=== PATIENT | male | born 1980 | race Caucasian/White ===

== ENCOUNTER → 2017-01-04 | Outpatient (REF) | payer MEDICARE, MEDICAID ==
[~2017-01-04] MED LIST: /ESCI10TA; /WARF3TA; /WARF4TA; AMLO10TA; CLON0.5T; CLON1TAB; CLONAZEPAN; CLONPOW23; KEPPRA; KLON1TAB; LISI10TA4; TOPR25TA
[2017-01-04 13:22] LABS: ANION GAP 10 MEQ/L (8-16); BLOOD UREA NITROGEN 12 MG/DL (7-18); CALCIUM LEVEL 8.7 MG/DL (8.5-10.1); CARBON DIOXIDE LEVEL 28 MEQ/L (21-32); CHLORIDE LEVEL 103 MEQ/L (98-107); CREATININE FOR GFR 1.34 MG/DL (0.70-1.30); GLOMERULAR FILTRATION RATE > 60.0 (>60); GLUCOSE, FASTING 88 MG/DL (70-105); POTASSIUM SERUM 4.8 MEQ/L (3.5-5.1); SODIUM LEVEL 141 MEQ/L (136-145)
== END ==
LOC: M LABDRWAD 12:32
PROVIDERS: ATTEND Urology
DX: Z85.528 Personal history of other malignant neoplasm of kidney (principal)

== ENCOUNTER 2017-07-11 11:00 | Emergency (ER) | payer MEDICARE, MEDICAID ==
[~2017-07-11] VITALS: Ht 180.3 cm; Wt 84.9 kg
[2017-07-11] MEDS ORDERED: MULT1TAB18 PO (11:13)
[2017-07-11] MEDS ORDERED: COUM2.5T17 PO (11:13)
[2017-07-11] MEDS ORDERED: COUM1TAB17 PO (11:13)
[2017-07-11] MEDS ORDERED: KEPP10002 PO (11:13)
[2017-07-11] MEDS ORDERED: LISI10TA4 PO (11:13)
[2017-07-11] MEDS ORDERED: vitamin d3 (11:13)
[2017-07-11] MEDS ORDERED: NS 1,000 ML IV ONE (12:45)
[2017-07-11 13:26] LABS: BASO % 0.2 % (0.0-1.0); EOS # 0.2 K/mm3 (0.0-0.50); EOS % 1.8 % (0.0-3.0); LARGE UNSTAINED CELL # 0.1 K/mm3 (0.0-0.4); LYMPH % 11.6 % (24.0-44.0); MEAN CORPUSCULAR HEMOGLOBIN 33.2 pg (27.0-33.0); MEAN CORPUSCULAR HGB CONC 36.1 g/dl (32.0-36.5); MEAN CORPUSCULAR VOLUME 91.9 fl (80.0-96.0); MONO # 0.4 K/mm3 (0.0-0.8); MONO % 4.6 % (0.0-5.0); NEUTROPHILS # 7.2 K/mm3 (1.8-7.7); NEUTROPHILS % 80.8 % (36.0-66.0); PLATELET COUNT, AUTOMATED 187 k/mm3 (150-450); RED CELL DISTRIBUTION WIDTH 13.1 % (11.5-14.5); WHITE BLOOD COUNT 8.9 K/mm3 (4.0-10.0)
[2017-07-11 13:39] LABS: ALT/SGPT 28 U/L (12-78); ANION GAP 5 MEQ/L (8-16); AST/SGOT 22 U/L (15-37); BLOOD UREA NITROGEN 10 MG/DL (7-18); CALCIUM LEVEL 9.7 MG/DL (8.5-10.1); CARBON DIOXIDE LEVEL 31 MEQ/L (21-32); CHLORIDE LEVEL 101 MEQ/L (98-107); CREATININE FOR GFR 1.12 MG/DL (0.70-1.30); GLOMERULAR FILTRATION RATE > 60.0 (>60); GLUCOSE, FASTING 95 MG/DL (70-105); POTASSIUM SERUM 4.2 MEQ/L (3.5-5.1); SODIUM LEVEL 137 MEQ/L (136-145)
[2017-07-11 13:40] LABS: ALBUMIN 4.4 GM/DL (3.2-5.2); ALBUMIN/GLOBULIN RATIO 1.05 (1.00-1.93); ALKALINE PHOSPHATASE 65 U/L (45-117); BILIRUBIN,DIRECT 0.2 MG/DL (0.0-0.2); BILIRUBIN,TOTAL 0.9 MG/DL (0.2-1.0); TOTAL PROTEIN 8.6 GM/DL (6.4-8.2)
[2017-07-11 14:01] LABS: INR 1.86
--- NOTE | 2017-07-11 14:08 | REP ---
ULTRASOUND OF THE ABDOMINAL AORTA: Real-time sonographic evaluation of the abdominal aorta performed. There is no abdominal aortic aneurysm identified. Maximum AP diameter of the abdominal aorta at the level of the diaphragms proximally is 2.3 cm, at the level of the renal artery is 2.2 cm, mid aspect 1.9 cm and distally 1.5 cm. Common iliac arteries are normal in caliber. There is no dissection. IMPRESSION: No evidence of abdominal aortic aneurysm or dissection. Signed by Milo Barnhart MD 07/12/2017 05:32 P
[2017-07-11] MEDS ORDERED: ISOVUE-370 76% 100ML VIAL (Q9967) As Ordered ONE (14:10)
--- NOTE | 2017-07-11 15:15 | REP ---
CT ABDOMEN AND PELVIS WITH IV CONTRAST: TECHNIQUE: Axial contrast enhanced images from the lung bases to the pubic symphysis using 100 mL Isovue 370 intravenous contrast material with multiplanar reformations. Visualized lung bases are clear. The liver is unremarkable. Gallbladder demonstrates two large gallstones measuring 2.4 cm and 2.0 cm in diameter. There is no definite gallbladder wall edema. Spleen and adrenals are unremarkable. Pancreas demonstrates an ill-defined streaky density in the region of the pancreatic head compatible with pancreatitis. The patient has had a left nephrectomy with metallic clips in the left renal fossa. The right kidney demonstrates a cyst in the upper pole 1.1 cm in diameter. There is no abdominal aortic aneurysm. There is no adenopathy, free air or free fluid. There is no bowel wall thickening. The appendix is normal. There is no pelvic mass. The urinary bladder is not well distended and is grossly unremarkable. IMPRESSION: Findings compatible with pancreatitis involving the pancreatic head. No free air or free fluid. Two large gallstones in the gallbladder. Signed by Milo Barnhart MD 07/12/2017 05:33 P
[2017-07-11 16:05] VITALS: BP 142/90
== END 2017-07-11 16:10 | disposition left against medical advice (07) ==
LOC: M ED 11:00
DX: K85.10 Biliary acute pancreatitis without necrosis or infection (principal); Z86.73 Personal history of transient ischemic attack (TIA), and cerebral infarction without residual deficits
CPT/HCPCS: 36415; 74177; 76775; 80048; 80076; 83690; 85025; 85610; 85730; 99283; Q9967

== ENCOUNTER 2018-05-06 10:35 | Emergency (ER) | payer MEDICARE, MEDICAID ==
[2018-05-06 11:28] LABS: EOS # 0.2 10^3/uL (0.0-0.50); EOS % 4.6 % (0.0-3.0); HEMATOCRIT 39.9 % (42.0-52.0); HEMOGLOBIN 13.7 g/dl (13.5-17.5); IMMATURE GRANULOCYTE % 0.2 % (0-3.0); LYMPH # 0.8 10^3/uL (1.5-4.5); LYMPH % 19.8 % (24.0-44.0); MEAN CORPUSCULAR HGB CONC 34.3 g/dl (32.0-36.5); MEAN CORPUSCULAR VOLUME 93.2 fl (80.0-96.0); MONO # 0.3 10^3/uL (0.0-0.8); MONO % 7.5 % (0.0-5.0); NEUTROPHILS # 2.8 10^3/uL (1.8-7.7); NEUTROPHILS % 66.9 % (36.0-66.0); PLATELET COUNT, AUTOMATED 150 10^3/uL (150-450); RED BLOOD COUNT 4.28 10^6/uL (4.30-6.10); RED CELL DISTRIBUTION WIDTH 13.1 % (11.5-14.5); WHITE BLOOD COUNT 4.2 10^3/uL (4.0-10.0)
[2018-05-06 11:42] LABS: INR 3.26; PROTHROMBIN TIME 33.9 SECONDS (12.1-14.4)
[2018-05-06 11:43] LABS: PARTIAL THROMBOPLASTIN TIME 57.3 SECONDS (25.4-37.6)
[2018-05-06 12:03] LABS: ANION GAP 7 MEQ/L (8-16); BLOOD UREA NITROGEN 11 MG/DL (7-18); CALCIUM LEVEL 8.5 MG/DL (8.5-10.1); CARBON DIOXIDE LEVEL 29 MEQ/L (21-32); CHLORIDE LEVEL 103 MEQ/L (98-107); CK-MB VALUE MASS < 1.0 NG/ML (<3.6); CPK CREATINE PHOSPHOKINASE 103 U/L (39-308); CREATININE FOR GFR 1.15 MG/DL (0.70-1.30); GLOMERULAR FILTRATION RATE > 60.0 (>60); GLUCOSE, FASTING 90 MG/DL (70-100); MB/CK RELATIVE INDEX 0.97 (< OR =4); POTASSIUM SERUM 4.3 MEQ/L (3.5-5.1); SODIUM LEVEL 139 MEQ/L (136-145); TROPONIN I < 0.02 NG/ML (< 0.10)
[2018-05-06] MEDS ORDERED: ISOVUE-370 76% 100ML VIAL (Q9967) As Ordered (14:02)
[2018-05-06] MEDS: NS 1,000 ML IV (14:24)
[2018-05-06] MEDS: NORCO, ANEXSIA 5/325MG TABLET (HYDROcodone/ACETAMINOPHEN) PO (15:24)
== END 2018-05-06 16:02 | disposition home or self-care (01) ==
LOC: M ED 10:35
DX: M25.511 Pain in right shoulder (principal); Z86.73 Personal history of transient ischemic attack (TIA), and cerebral infarction without residual deficits; Z79.899 Other long term (current) drug therapy; Z79.01 Long term (current) use of anticoagulants
CPT/HCPCS: Q9967

== ENCOUNTER 2018-05-13 11:52 | Outpatient (RCR) | payer MEDICARE, MEDICAID | END 2018-05-21 | LOC: M PT 11:52 | DX: Z51.89 Encounter for other specified aftercare (principal); M54.2 Cervicalgia | CPT/HCPCS: 97110 ==

== ENCOUNTER 2018-05-22 12:51 | Outpatient (RCR) | payer MEDICARE, MEDICAID | END 2018-06-21 | LOC: M PT 05-27 12:13 | DX: Z51.89 Encounter for other specified aftercare (principal); M54.2 Cervicalgia | CPT/HCPCS: 97110 ==

== ENCOUNTER 2018-08-22 15:20 | Emergency (ER) | payer MEDICARE, MEDICAID ==
[2018-08-22] MEDS: diazePAM 5 MG TAB PO (18:27)
[2018-08-22] MEDS: NORCO, ANEXSIA 5/325MG TABLET (HYDROcodone/ACETAMINOPHEN) PO ×2 (18:27→20:55)
[2018-08-22 18:45] LABS: BASO % 0.7 % (0.0-1.0); EOS # 0.1 10^3/uL (0.0-0.50); EOS % 1.4 % (0.0-3.0); HEMOGLOBIN 14.3 g/dl (13.5-17.5); IMMATURE GRANULOCYTE % 0.2 % (0-3.0); LYMPH # 0.8 10^3/uL (1.5-4.5); LYMPH % 13.4 % (24.0-44.0); MEAN CORPUSCULAR HEMOGLOBIN 31.5 pg (27.0-33.0); MEAN CORPUSCULAR VOLUME 92.5 fl (80.0-96.0); MONO # 0.3 10^3/uL (0.0-0.8); MONO % 5.5 % (0.0-5.0); NEUTROPHILS # 4.6 10^3/uL (1.8-7.7); NEUTROPHILS % 78.8 % (36.0-66.0); PLATELET COUNT, AUTOMATED 189 10^3/uL (150-450); RED BLOOD COUNT 4.54 10^6/uL (4.30-6.10); WHITE BLOOD COUNT 5.8 10^3/uL (4.0-10.0)
[2018-08-22 19:25] LABS: ANION GAP 6 MEQ/L (8-16); BLOOD UREA NITROGEN 18 MG/DL (7-18); CALCIUM LEVEL 8.8 MG/DL (8.5-10.1); CARBON DIOXIDE LEVEL 29 MEQ/L (21-32); CHLORIDE LEVEL 103 MEQ/L (98-107); CREATININE FOR GFR 1.16 MG/DL (0.70-1.30); GLOMERULAR FILTRATION RATE > 60.0 (>60); GLUCOSE, FASTING 102 MG/DL (70-100); POTASSIUM SERUM 4.5 MEQ/L (3.5-5.1); SODIUM LEVEL 138 MEQ/L (136-145)
[2018-08-22] MEDS ORDERED: ISOVUE-370 76% 100ML VIAL (Q9967) As Ordered ×2 (19:49→20:08)
[2018-08-22] MEDS: NS 1,000 ML IV (20:22)
[2018-08-22] MEDS: METHOCARBAMOL 1,000 MG/10 ML VIAL (J2800) IV (20:54)
[2018-08-22] MEDS ORDERED: diazePAM 5 MG TAB PO (21:45)
== END 2018-08-22 21:53 | disposition home or self-care (01) ==
LOC: M ED 15:20
DX: M54.5 Low back pain (principal); I11.0 Hypertensive heart disease with heart failure; I50.9 Heart failure, unspecified; Z86.73 Personal history of transient ischemic attack (TIA), and cerebral infarction without residual deficits
CPT/HCPCS: Q9967

== ENCOUNTER 2018-11-18 19:46 | Observation (INO) | payer MEDICARE, MEDICAID ==
[~2018-11-18] VITALS: Ht 180.3 cm; Wt 81.8 kg
[~2018-11-18 19:46] MED LIST changes: +COUM1TAB17 PO; +COUM2.5T17 PO; +KEPP10002 PO; +LISI10TA4 PO; +MULT1TAB18 PO; +NORC1TAB4 PO; +VALI5TAB PO; +vitamin d3
[2018-11-18 20:15] LABS: BASO % 0.1 % (0.0-1.0); EOS # 0.1 10^3/uL (0.0-0.50); EOS % 0.3 % (0.0-3.0); HEMATOCRIT 41.1 % (42.0-52.0); HEMOGLOBIN 14.4 g/dl (13.5-17.5); LYMPH # 0.4 10^3/uL (1.5-4.5); MEAN CORPUSCULAR HEMOGLOBIN 31.6 pg (27.0-33.0); MEAN CORPUSCULAR VOLUME 90.1 fl (80.0-96.0); MONO # 0.8 10^3/uL (0.0-0.8); MONO % 4.8 % (0.0-5.0); NEUTROPHILS % 92.3 % (36.0-66.0); PLATELET COUNT, AUTOMATED 151 10^3/uL (150-450); RED BLOOD COUNT 4.56 10^6/uL (4.30-6.10); WHITE BLOOD COUNT 17.4 10^3/uL (4.0-10.0)
[2018-11-18 20:59] LABS: ALBUMIN 4.4 GM/DL (3.2-5.2); ALT/SGPT 29 U/L (12-78); BILIRUBIN,DIRECT 0.2 MG/DL (0.0-0.2); BILIRUBIN,TOTAL 1.4 MG/DL (0.2-1.0); BLOOD UREA NITROGEN 13 MG/DL (7-18); CARBON DIOXIDE LEVEL 25 MEQ/L (21-32); CHLORIDE LEVEL 100 MEQ/L (98-107); CREATININE FOR GFR 1.22 MG/DL (0.70-1.30); GLOMERULAR FILTRATION RATE > 60.0 (>60); GLUCOSE, FASTING 121 MG/DL (70-100); LIPASE 178 U/L (73-393); POTASSIUM SERUM 4.4 MEQ/L (3.5-5.1); SODIUM LEVEL 136 MEQ/L (136-145); TOTAL PROTEIN 7.5 GM/DL (6.4-8.2)
[2018-11-18] MEDS ORDERED: ONDANSETRON 4MG/2ML VIAL (J2405) IV ONE (21:15)
[2018-11-18] MEDS ORDERED: NS 1,000 ML IV ONE (21:15)
[2018-11-18] MEDS ORDERED: PANTOPRAZOLE 40MG INJ (PROTONIX) (C9113) IV ONE (21:15)
[2018-11-18 21:36] LABS: INR 2.28; PROTHROMBIN TIME 25.6 SECONDS (12.1-14.4)
[2018-11-18] MEDS ORDERED: MORPHINE 4 MG/ML 1ML VIAL/SYRINGE (J2270) IV ONE (22:15)
--- NOTE | 2018-11-18 22:31 | REPVR ---
EXAM: CT Abdomen and Pelvis Without Contrast EXAM DATE/TIME: 11/18/2018 9:49 PM CLINICAL HISTORY: 38 years old, male; Pain; Abdominal pain; Generalized; Prior surgery; Additional info: Abd pain 1 kidney TECHNIQUE: Axial computed tomography images of the abdomen and pelvis without contrast. All CT scans at this facility use at least one of these dose optimization techniques: automated exposure control; mA and/or kV adjustment per patient size (includes targeted exams where dose is matched to clinical indication); or iterative reconstruction. Coronal and sagittal reformatted images were created and reviewed. COMPARISON: CT ABD PELVIS WITH CONTRAST 08/22/2018 7:43 PM FINDINGS: Lower thorax: Lung base as. The heart is normal in size. ABDOMEN: Liver: Normal liver. Gallbladder and bile ducts: Surgical clips at the gallbladder fossa and the patient is status post total cystectomy. Normal common bile duct. Pancreas: Normal pancreas. Spleen: Normal spleen. Adrenals: Normal adrenal glands. Kidneys and ureters: Tiny cyst in the upper pole right kidney. There is no evidence of obstruction of the right ureter. Surgical clips are noted at the left renal fossa patient is post left nephrectomy. Stomach and bowel: There are moderately dilated loops of small bowel in left abdomen with secretions and air-fluid levels which may be the result of ileus or early enteritis. Appendix: The appendix measures 1.3 CM at the distal portion. There is a 1 cm round calcified appendicolith at the junction of the appendix with the cecum. The distal end of the appendix is filled with secretions and there is mild thickening and hazy margins. The findings are suspicious for changes of appendicitis. The size of the he appendix has markedly increased since 09/11/2018. PELVIS: Bladder: Normal urinary bladder. Reproductive: Unremarkable as visualized. ABDOMEN and PELVIS: Intraperitoneal space: There is no evidence of pneumoperitoneum. There is no evidence of free fluid in the abdomen or the pelvis. Bones/joints: There is no evidence of bony abnormality. Soft tissues: Unremarkable. Vasculature: The aorta is normal in size. Lymph nodes: Normal. No enlarged lymph nodes. IMPRESSION: Since the previous examination of August there has been dilatation of the appendix measuring 1.3 CM. There is a slight hazy appearance to the margins of the appendix at the right pelvis. There is a 1 cm calcified appendicolith at the junction of the appendix and cecum. There is fluid filling the mid and distal appendix. This is all very suspicious for changes of acute appendicitis. Findings were discussed with SPENCER KOROMA at 11/18/2018 10:27 PM EST. Electronically signed by: Supa Miranda On 11/18/2018 22:30:47 PM
[2018-11-18] MEDS ORDERED: PROPOFOL 200 MG/20 ML VIAL As Ordered ONE (23:39)
[2018-11-18] MEDS ORDERED: LIDOCAINE 2% INJ 100 MG/5 ML SDV (FOR ANES.) As Ordered ONE (23:39)
[2018-11-18] MEDS ORDERED: fentaNYL 250 MCG/5 ML INJECTION (J3010) As Ordered ONE (23:39)
[2018-11-18] MEDS ORDERED: MIDAZOLAM INJ 2 MG/2 ML VIAL (J2250) As Ordered ONE (23:39)
[2018-11-18] MEDS ORDERED: ROCURONIUM BROMIDE 50 MG/5 ML VIAL As Ordered ONE (23:39)
[2018-11-18] MEDS ORDERED: TYLE500T78 PO (23:41)
[2018-11-18] MEDS ORDERED: VITMTA PO (23:41)
[2018-11-18] MEDS ORDERED: LISI-538 PO (23:41)
[2018-11-18] MEDS ORDERED: VITA100066 PO (23:41)
[2018-11-18] MEDS ORDERED: PIPERACILLIN/TAZOBACTAM SOD 3.375 GM in D5W MINI-BAG PLUS 50 ML IV ONE (23:45)
[2018-11-19] VITALS (10 sets, daily range): BP systolic 103–134; BP diastolic 70–91
[2018-11-19] MEDS ORDERED: BUPIVACAINE/EPIN 0.25% 30 ML VIAL As Ordered ONE (00:23)
[2018-11-19] MEDS ORDERED: MORPHINE 4 MG/ML 1ML VIAL/SYRINGE (J2270) IV PRN (02:00)
[2018-11-19] MEDS ORDERED: ONDANSETRON 4MG/2ML VIAL (J2405) IV PRN ×2 (02:00→03:00)
[2018-11-19] MEDS ORDERED: ACETAMINOPHEN TAB 650MG DOSE (2X325MG) PO PRN (02:00)
[2018-11-19] MEDS ORDERED: dexameTHASONE 4 MG/ML 1ML VIAL (J1100) As Ordered ONE (02:09)
[2018-11-19] MEDS ORDERED: ONDANSETRON 4MG/2ML VIAL (J2405) As Ordered ONE (02:09)
[2018-11-19] MEDS ORDERED: DESFLURANE 240 ML INHALANT As Ordered ONE (02:12)
[2018-11-19] MEDS ORDERED: SUGAMMADEX SODIUM 500 MG/5 ML VIAL (BRIDION) As Ordered ONE (02:22)
[2018-11-19] MEDS ORDERED: ESMOLOL INJ 100MG/10ML VIAL As Ordered ONE (02:34)
[2018-11-19] MEDS ORDERED: fentaNYL 100 MCG/2 ML INJECTION (J3010) As Ordered ONE (02:45)
[2018-11-19] MEDS ORDERED: METOCLOPRAMIDE INJ 10MG/2ML VIAL (J2765) IV PRN (03:00)
[2018-11-19] MEDS ORDERED: PERCOCET 5MG/325MG TAB PO PRN (03:00)
[2018-11-19] MEDS ORDERED: fentaNYL 100 MCG/2 ML INJECTION (J3010) IV PRN (03:00)
[2018-11-19] MEDS ORDERED: LR 1,000 ML IV SCH (03:00)
[2018-11-19] MEDS: KETOROLAC 30 MG/ML VIAL (J1885) IV PRN ×2 (04:07→14:11)
[2018-11-19] MEDS: KCL 20MEQ IN D5/0.45NS 1000ML 1,000 ML IV SCH ×3 (04:18→14:13)
[2018-11-19] MEDS: levETIRAcetam 250MG TABLET (KEPPRA) PO SCH ×3 (04:28→20:19)
[2018-11-19] MEDS: LISINOPRIL 20 MG TAB PO SCH ×3 (04:28→20:28)
[2018-11-19] MEDS: SENOKOT S TAB PO SCH ×3 (04:29→20:18)
[2018-11-19] MEDS: PIPERACILLIN/TAZOBACTAM SOD 3.375 GM in D5W MINI-BAG PLUS 50 ML IV SCH ×4 (05:45→23:42)
[2018-11-19 06:29] LABS: HEMATOCRIT 38.4 % (42.0-52.0); MEAN CORPUSCULAR HEMOGLOBIN 31.2 pg (27.0-33.0); MEAN CORPUSCULAR HGB CONC 33.9 g/dl (32.0-36.5); MEAN CORPUSCULAR VOLUME 92.1 fl (80.0-96.0); PLATELET COUNT, AUTOMATED 143 10^3/uL (150-450); RED BLOOD COUNT 4.17 10^6/uL (4.30-6.10); WHITE BLOOD COUNT 12.3 10^3/uL (4.0-10.0)
[2018-11-19 06:35] LABS: INR 2.01; PROTHROMBIN TIME 23.1 SECONDS (12.1-14.4)
[2018-11-19] MEDS ORDERED: ENOXAPARIN 40 MG/0.4 ML SYRINGE (J1650) SC SCH (09:00)
[2018-11-19] MEDS: PANTOPRAZOLE 40MG TAB (PROTONIX) PO SCH (09:05)
[2018-11-19] MEDS: WARFARIN SOD 5 MG TAB PO SCH (09:05)
[2018-11-19] MEDS: NORCO, ANEXSIA 5/325MG TABLET (HYDROcodone/ACETAMINOPHEN) PO PRN ×3 (09:06→23:44)
--- NOTE | 2018-11-19 21:17 | ECGEPIP ---
Stationary ECG Study [facility] - ED Test Date: 2018-11-18 Pat Name: JAYLEEN MARTINS Department: Room: [place] [address] Gender: M Taker Down: [place] : 1980 Requested By: SPENCER SIDDIQUI Order Number: [id number] Reading MD: Camilo Mcbride Measurements Intervals Industry Rate: 88 P: 62 LA: 277 QRS: -7 QRSD: 101 T: 18 QT: 387 QTc: 470 Interpretive Statements SINUS RHYTHM WITH FIRST DEGREE AV BLOCK LEFT ATRIAL ENLARGEMENT LEFT VENTRICULAR HYPERTROPHY POSSIBLE SEPTAL MYOCARDIAL INFARCTION, OF INDETERMINATE AGE SIMILAR TO 05/06/18 Electronically Signed On 11-19-2018 21:17:36 EST by Camilo Mcbride
[2018-11-20] VITALS: BP 110/62
[2018-11-20 04:00] VITALS: BP 108/64
[2018-11-20] MEDS: PIPERACILLIN/TAZOBACTAM SOD 3.375 GM in D5W MINI-BAG PLUS 50 ML IV SCH (05:36)
[2018-11-20] MEDS: NORCO, ANEXSIA 5/325MG TABLET (HYDROcodone/ACETAMINOPHEN) PO PRN (06:39)
[2018-11-20 06:58] LABS: HEMATOCRIT 34.5 % (42.0-52.0); HEMOGLOBIN 11.5 g/dl (13.5-17.5); MEAN CORPUSCULAR HEMOGLOBIN 31.8 pg (27.0-33.0); MEAN CORPUSCULAR HGB CONC 33.3 g/dl (32.0-36.5); MEAN CORPUSCULAR VOLUME 95.3 fl (80.0-96.0); PLATELET COUNT, AUTOMATED 116 10^3/uL (150-450); RED BLOOD COUNT 3.62 10^6/uL (4.30-6.10); WHITE BLOOD COUNT 6.7 10^3/uL (4.0-10.0)
[2018-11-20 07:24] LABS: BLOOD UREA NITROGEN 15 MG/DL (7-18); CALCIUM LEVEL 8.2 MG/DL (8.5-10.1); CARBON DIOXIDE LEVEL 27 MEQ/L (21-32); CHLORIDE LEVEL 107 MEQ/L (98-107); CREATININE FOR GFR 1.18 MG/DL (0.70-1.30); GLOMERULAR FILTRATION RATE > 60.0 (>60); GLUCOSE, FASTING 91 MG/DL (70-100); POTASSIUM SERUM 3.8 MEQ/L (3.5-5.1); SODIUM LEVEL 142 MEQ/L (136-145)
[2018-11-20 07:26] LABS: INR 3.68; PROTHROMBIN TIME 37.4 SECONDS (12.1-14.4)
--- NOTE | 2018-11-20 08:08 | RO ---
DATE OF PROCEDURE: 11/18/2018 PREOPERATIVE DIAGNOSIS: Acute appendicitis. POSTOPERATIVE DIAGNOSIS: Acute appendicitis. PROCEDURE: Laparoscopic appendectomy. SURGEON: Dr. Milo Connell. DISPATCH OFFICER: None. ANESTHESIA: General. ESTIMATED BLOOD LOSS: 5. COMPLICATIONS: None. INDICATIONS FOR PROCEDURE: The patient is a 38-year-old male who presents with right lower quadrant abdominal pain, found to have leukocytosis, fevers and dilated appendix on CT. Recommendation to proceed with laparoscopic possible open appendectomy. Risks and benefits of the procedure not limited to but including bleeding, infection, hernia formation, damage to surrounding structures, need for further surgery. Consent was obtained and procedure was planned. PROCEDURE: The patient brought back to operating room three. After sufficient sedation, the abdomen sterilely prepped and draped. Next time out was done to confirm proper and patient procedure. Following that, a 5 mm incision was made in the left lower quadrant. Veress needle was inserted and the abdomen insufflated to 50 mmHg. Next Veress needle was removed and 5 mm OptiView port was used to gain access to the abdomen. Once the abdomen was entered, another 8 mm port was placed supraumbilically in the midline, another 5 mm port suprapubically in the midline. Appendix was then identified in the right lower quadrant. It was elevated up in the air. Mesoappendix was taken down using the Enseal and then the appendix was ligated with two PDS Endoloops. Appendix was then transected using the Enseal and brought out through the umbilical port site in a 5 mm EndoCatch bag. Once this was removed, the fascia at the umbilical port site was closed with an #0 Vicryl suture and a Javier-Mari needle. The abdomen was then desufflated. Skin incisions were closed with #4-0 Vicryl subcuticular sutures. The abdomen was cleaned and dried. Steri-Strips, 4x4 and tape were applied thus ending procedure.
[2018-11-20 08:44] VITALS: BP 116/70
[2018-11-20] MEDS: PANTOPRAZOLE 40MG TAB (PROTONIX) PO SCH (08:44)
[2018-11-20] MEDS: LISINOPRIL 20 MG TAB PO SCH (08:44)
[2018-11-20] MEDS: levETIRAcetam 250MG TABLET (KEPPRA) PO SCH (08:45)
[2018-11-20] MEDS: SENOKOT S TAB PO SCH (08:45)
[2018-11-20] MEDS: WARFARIN SOD 5 MG TAB PO SCH (08:45)
[2018-11-20] MEDS ORDERED: NORCOTAB PO (08:49)
--- NOTE | 2018-11-20 10:14 | HPE ---
DATE OF ADMISSION: 11/18/2017 CHIEF COMPLAINT: Right lower quadrant pain. HISTORY OF PRESENT ILLNESS: The patient is a 38-year-old male who presented to the emergency room on the with complaints of right lower quadrant abdominal pain that started suddenly during the day and kept getting progressively worse. He was brought into the emergency room and had a CAT scan done with concern for appendicitis as well as a white count of 17.4. He is on Coumadin for a mechanical heart valve. He was given 2 units of fresh frozen plasma (FFP) from the emergency room. The plan was to get him up to the operating room for surgery early in the morning. I saw him in preop. He said that his pain was still significant in the right lower quadrant. No recent trauma or travel. No recent illnesses. No previous surgeries in the right lower part of his abdomen. He has had some fevers since reaching the hospital, none prior. No nausea or vomiting. PAST MEDICAL HISTORY: Significant for renal cancer and congenital heart problems. PAST SURGICAL HISTORY: He has had three open heart surgeries, a left nephrectomy and a cholecystectomy. ALLERGIES: None. HOME MEDICATIONS: Please see medical record, including Coumadin. SOCIAL HISTORY: Denies drug, alcohol or tobacco abuse. FAMILY HISTORY: Noncontributory. REVIEW OF SYSTEMS: Pertinent positives and negative as stated in history of present illness (HPI). PHYSICAL EXAMINATION: General: Alert and oriented times three. No acute distress. Vitals: Temperature 100.4, pulse 80, respirations 20, blood pressure 152/99, pulse oximetry 99% in room air. HEENT: Pupils equally round and react to light and accommodation. Heart: S1 and S2, regular rate and rhythm. Lungs: Clear to auscultation bilaterally. Abdomen: Soft. Tender to palpation in the right lower quadrant. Localized guarding. No rebounding or rigidity. Extremities: No clubbing, cyanosis or edema. LABORATORY DATA: White count 17.4, hemoglobin 14.4, platelets 151, potassium 4.4, creatinine 1.22, alkaline phosphatase and liver enzymes were all normal. IMAGING: CT of abdomen and pelvis was completed showing that the appendix is dilated to 1.3 cm. There is inflammation around it. There is also a 1 cm calcified appendicolith within the appendix suggesting acute appendicitis. ASSESSMENT/PLAN: The patient is a 38-year-old male with acute appendicitis. RECOMMENDATION: Proceed with laparoscopic and possible open appendectomy. Risks and benefits of the procedure not limited to, but including bleeding, infection, hernia formation, damage to surrounding structures and need for further surgery were discussed in detail with the patient. In formed consent was obtained and the procedure was planned. Postoperatively, will restart him back on his blood thinners. Once he is stabilized, we will plan for discharge home.
--- NOTE | 2018-11-20 14:01 | DSES ---
DATE OF ADMISSION: 11/18/2018 DATE OF DISCHARGE: 11/20/2018 ADMISSION DIAGNOSIS: Acute appendicitis. DISCHARGE DIAGNOSIS: Acute appendicitis. HOSPITAL COURSE: The patient is a 38-year-old male who presented late on the evening of with acute appendicitis. Due to his INR level being therapeutic on Coumadin, he was given 2 units of fresh frozen plasma. As soon as that was completed, he had surgery very early in the morning on the . Postoperatively, he was doing well. Morning labs revealed that his INR level was still over 2. His pain was improved. I did not give him any Lovenox, I just continued with his normal 5 mg dose of Coumadin and monitored him for another 24 hours to make sure that he did not drop down again until postop day #2. This morning his INR has shot up over 3. I discussed holding off on his dose today and discharging him home but he said he would prefer to not miss a dose, he is just going to take his 2.5 mg dose today and then he will get his labs next week and follow up with his medical record assistant to get back on his regular schedule. PLAN: The plan is to discharge home today. White count is back to normal. He has no pain. He is tolerating diet, ambulating without any difficulty. He will follow up with me in the office in 2 weeks. All of his questions were answered. He knows to call the office if he has any problems.
[2018-11-21] MEDS ORDERED: WARFARIN SOD 2.5 MG TAB PO SCH (17:00)
== END 2018-11-20 10:22 | disposition home or self-care (01) ==
LOC: M ED 19:46 → INTOOBSV 23:34 → M ED INP 23:34 → M MS4PR 11-19 03:40
PROVIDERS: ADMIT Surgery; ATTEND Surgery
DX: K35.890 Other acute appendicitis without perforation or gangrene (principal); D72.829 Elevated white blood cell count, unspecified; I10 Essential (primary) hypertension; Z86.73 Personal history of transient ischemic attack (TIA), and cerebral infarction without residual deficits; R56.9 Unspecified convulsions; Z79.01 Long term (current) use of anticoagulants; Z95.2 Presence of prosthetic heart valve; Z85.528 Personal history of other malignant neoplasm of kidney; Z79.899 Other long term (current) drug therapy
CPT/HCPCS: 36415; 36430; 44970; 74176; 80048; 80076; 81001; 83690; 85025; 85027; 85610; 86850; 86900; 86901; 86927; 88304; 93005; 96361; 96365; 96366; 96375; 96376; 99285; C9113; G0378; J1100; J1885; J2250; J2270; J2405; J2543; J3010; P9017

== ENCOUNTER → 2022-10-10 | Outpatient (CLI) | payer MEDICARE, MEDICAID ==
[~2022-10-10] MED LIST changes: -/ESCI10TA; -/WARF3TA; -/WARF4TA; +COUM1TAB14; +COUM1TAB19; +HYDR-3715 PO; +LEXA1TAB; +LISI10TA22 PO; -LISI10TA4 PO; +LISI20TA33 PO; +METO-1; -NORC1TAB4 PO; +NORC1TAB7 PO; -TOPR25TA; +TYLE500T78 PO; +VITA100066 PO; +VITMTA PO
[2022-10-10 10:28] LABS: INR 1.05; PROTHROMBIN TIME 13.9 SECONDS (12.5-14.5)
== END ==
LOC: M LAB 09:37
PROVIDERS: ATTEND Internal Medicine Cardiovascular Disease
DX: Z95.2 Presence of prosthetic heart valve (principal)

== ENCOUNTER → 2023-03-23 | Outpatient (REF) | payer MEDICARE, MEDICAID ==
[2023-03-23 13:44] LABS: INR 1.86; PROTHROMBIN TIME 21.8 SECONDS (12.5-14.5)
== END ==
LOC: M LABDRWAD 13:05
PROVIDERS: ATTEND Internal Medicine Cardiovascular Disease
DX: Z79.01 Long term (current) use of anticoagulants (principal)

== ENCOUNTER → 2023-05-04 | Outpatient (REF) | payer MEDICARE, MEDICAID ==
[2023-05-04 13:48] LABS: INR 1.89
== END ==
LOC: M LABDRWAD 12:24
PROVIDERS: ATTEND Internal Medicine Cardiovascular Disease
DX: Z79.01 Long term (current) use of anticoagulants (principal)

== ENCOUNTER → 2023-06-06 | Outpatient (REF) | payer MEDICARE, MEDICAID ==
[2023-06-06 13:21] LABS: INR 2.59; PROTHROMBIN TIME 27.1 SECONDS (12.5-14.5)
== END ==
LOC: M LABDRWAD 12:29
PROVIDERS: ATTEND Internal Medicine Cardiovascular Disease
DX: Z79.01 Long term (current) use of anticoagulants (principal)

== ENCOUNTER → 2023-07-03 | Outpatient (REF) | payer MEDICARE, MEDICAID ==
[2023-07-03 13:33] LABS: INR 1.95; PROTHROMBIN TIME 21.7 SECONDS (12.5-14.5)
[2023-07-03 13:43] LABS: BLOOD UREA NITROGEN 11 MG/DL (9-23); CALCIUM LEVEL 8.8 MG/DL (8.5-10.1); CARBON DIOXIDE LEVEL 30 MMOL/L (20-31); CHLORIDE LEVEL 105 MMOL/L (98-107); CREATININE FOR GFR 1.18 MG/DL (0.70-1.30); GLOMERULAR FILTRATION RATE > 60.0 (>60); GLUCOSE, FASTING 85 MG/DL (60-100); POTASSIUM SERUM 4.3 MMOL/L (3.5-5.1); SODIUM LEVEL 140 MMOL/L (136-145)
== END ==
LOC: M LABDRWAD 12:10
PROVIDERS: ATTEND Internal Medicine Cardiovascular Disease
DX: Z79.01 Long term (current) use of anticoagulants (principal); Q61.00 Congenital renal cyst, unspecified

== ENCOUNTER → 2023-08-06 | Outpatient (REF) | payer MEDICARE, MEDICAID ==
[2023-08-06 15:06] LABS: INR 2.02; PROTHROMBIN TIME 22.4 SECONDS (12.5-14.5)
== END ==
LOC: M LABDRWAD 12:55
PROVIDERS: ATTEND Internal Medicine Cardiovascular Disease
DX: Z79.01 Long term (current) use of anticoagulants (principal)

== ENCOUNTER → 2023-09-24 | Outpatient (CLI) | payer MEDICARE, MEDICAID ==
[2023-09-24 13:43] LABS: INR 2.18; PROTHROMBIN TIME 23.5 SECONDS (12.5-14.5)
== END ==
LOC: M LABDRWAD 11:36
PROVIDERS: ATTEND Internal Medicine Cardiovascular Disease
DX: Z79.01 Long term (current) use of anticoagulants (principal)

== ENCOUNTER → 2023-11-21 | Outpatient (REF) | payer MEDICARE, MEDICAID ==
[2023-11-21 13:55] LABS: INR 2.01; PROTHROMBIN TIME 22.1 SECONDS (12.5-14.5)
== END ==
LOC: M LABDRWAD 12:33
PROVIDERS: ATTEND Internal Medicine Cardiovascular Disease
DX: Z79.01 Long term (current) use of anticoagulants (principal)

== ENCOUNTER → 2023-12-28 | Outpatient (REF) | payer MEDICARE, MEDICAID ==
[2023-12-28 19:13] LABS: INR 2.11; PROTHROMBIN TIME 22.9 SECONDS (12.5-14.5)
== END ==
LOC: M LABDRWAD 17:45
PROVIDERS: ATTEND Internal Medicine Cardiovascular Disease
DX: Z79.01 Long term (current) use of anticoagulants (principal)

== ENCOUNTER → 2024-01-30 | Outpatient (REF) | payer MEDICARE, MEDICAID ==
[2024-01-30 12:36] LABS: INR 2.17; PROTHROMBIN TIME 23.4 SECONDS (12.5-14.5)
== END ==
LOC: M LABDRWAD 12:20
PROVIDERS: ATTEND Internal Medicine Cardiovascular Disease
DX: Z79.01 Long term (current) use of anticoagulants (principal)

== ENCOUNTER → 2024-03-05 | Outpatient (REF) | payer MEDICARE, MEDICAID ==
[2024-03-05 17:22] LABS: INR 1.68; PROTHROMBIN TIME 19.3 SECONDS (12.5-14.5)
== END ==
LOC: M PLALAB 16:54
PROVIDERS: ATTEND Internal Medicine Cardiovascular Disease
DX: Z79.01 Long term (current) use of anticoagulants (principal)

== ENCOUNTER → 2024-03-26 | Outpatient (REF) | payer MEDICARE, MEDICAID ==
[2024-03-26 17:57] LABS: INR 2.11; PROTHROMBIN TIME 22.9 SECONDS (12.5-14.5)
== END ==
LOC: M LABDRWAD 17:03
PROVIDERS: ATTEND Internal Medicine Cardiovascular Disease
DX: Z79.01 Long term (current) use of anticoagulants (principal)

== ENCOUNTER → 2024-05-28 | Outpatient (REF) | payer MEDICARE, MEDICAID ==
[2024-05-28 17:34] LABS: INR 2.14; PROTHROMBIN TIME 23.2 SECONDS (12.5-14.5)
== END ==
LOC: M LABDRWAD 17:05
PROVIDERS: ATTEND Internal Medicine Cardiovascular Disease
DX: Z79.01 Long term (current) use of anticoagulants (principal)

== ENCOUNTER → 2024-07-20 | Outpatient (REF) | payer MEDICARE | LOC: M LAB REF 19:37 | PROVIDERS: ATTEND Physician Assistant Medical | DX: B34.9 Viral infection, unspecified (principal) ==

== ENCOUNTER → 2024-08-06 | Outpatient (REF) | payer MEDICARE, MEDICAID ==
[2024-08-06 12:55] LABS: INR 3.19; PROTHROMBIN TIME 31.4 SECONDS (12.5-14.5)
== END ==
LOC: M LABDRWAD 12:37
PROVIDERS: ATTEND Internal Medicine Cardiovascular Disease
DX: Z79.01 Long term (current) use of anticoagulants (principal)

== ENCOUNTER → 2024-08-06 | Outpatient (REF) | payer MEDICARE, MEDICAID ==
[2024-08-06 13:22] LABS: BASO % 0.6 % (0.0-1.0); EOS # 0.1 10^3/uL (0.0-0.5); EOS % 3.3 % (0.0-3.0); HEMATOCRIT 37.5 % (42.0-52.0); HEMOGLOBIN 12.8 g/dl (13.5-17.5); LYMPH # 0.6 10^3/uL (1.5-5.0); LYMPH % 18.1 % (24.0-44.0); MEAN CORPUSCULAR HEMOGLOBIN 32.2 pg (27.0-33.0); MEAN CORPUSCULAR HGB CONC 34.1 g/dl (32.0-36.5); MEAN CORPUSCULAR VOLUME 94.5 fl (80.0-96.0); MONO # 0.2 10^3/uL (0.0-0.8); MONO % 6.8 % (2.0-8.0); NEUTROPHILS # 2.4 10^3/uL (1.5-8.5); NEUTROPHILS % 70.9 % (36.0-66.0); PLATELET COUNT, AUTOMATED 136 10^3/uL (150-450); RED BLOOD COUNT 3.97 10^6/uL (4.30-6.10); WHITE BLOOD COUNT 3.4 10^3/uL (4.0-10.0)
[2024-08-06 13:30] LABS: APPEARANCE, URINE CLEAR (CLEAR); BACTERIA, URINE AUTO NEGATIVE (NEGATIVE); BILIRUBIN, URINE AUTO NEGATIVE (NEGATIVE); BLOOD, URINE BLOOD NEGATIVE (NEGATIVE); COLOR, URINE YELLOW (YELLOW); GLUCOSE, URINE (UA) AUTO NEGATIVE (NEGATIVE); KETONE, URINE AUTO NEGATIVE (NEGATIVE); LEUKOCYTE ESTERASE, URINE AUTO NEGATIVE (NEGATIVE); MUCUS, URINE SMALL (NEGATIVE); NITRITE, URINE AUTO NEGATIVE (NEGATIVE); PROTEIN, URINE AUTO NEGATIVE (NEGATIVE); RBC, URINE AUTO 0 /HPF (0-3); SQUAMOUS EPITHELIAL CELL UR AU 0 /HPF (0-6); UROBILINOGEN, URINE AUTO 0.2 mg/dL (0.0-2.0); WBC, URINE AUTO 0 /HPF (0-3)
[2024-08-06 13:49] LABS: ALBUMIN 3.6 G/DL (3.2-5.2); ALKALINE PHOSPHATASE 54 U/L (46-116); ALT/SGPT 16 U/L (7.0-40); AST/SGOT 10 U/L (<34); BILIRUBIN,TOTAL 0.6 MG/DL (0.3-1.2); BLOOD UREA NITROGEN 15 MG/DL (9-23); CALCIUM LEVEL 9.2 MG/DL (8.5-10.1); CARBON DIOXIDE LEVEL 30 MMOL/L (20-31); CHLORIDE LEVEL 106 MMOL/L (98-107); CREATININE FOR GFR 1.02 MG/DL (0.70-1.30); GLOMERULAR FILTRATION RATE > 60.0 (>60); GLUCOSE, FASTING 102 MG/DL (60-100); POTASSIUM SERUM 4.3 MMOL/L (3.5-5.1); SODIUM LEVEL 138 MMOL/L (136-145); TOTAL PROTEIN 6.3 G/DL (5.7-8.2)
== END ==
LOC: M LABDRWAD 12:35
PROVIDERS: ATTEND Family Medicine
DX: I10 Essential (primary) hypertension (principal); F41.1 Generalized anxiety disorder; Z79.899 Other long term (current) drug therapy; Z51.89 Encounter for other specified aftercare

== ENCOUNTER → 2024-11-05 | Outpatient (REF) | payer MEDICARE, MEDICAID ==
[2024-11-05 17:18] LABS: INR 2.06; PROTHROMBIN TIME 23.3 SECONDS (12.5-14.5)
== END ==
LOC: M LABDRWAD 16:47
PROVIDERS: ATTEND Internal Medicine Cardiovascular Disease
DX: Z79.01 Long term (current) use of anticoagulants (principal)

== ENCOUNTER → 2025-01-26 | Outpatient (REF) | payer MEDICARE, MEDICAID ==
[2025-01-26 13:17] LABS: INR 2.34; PROTHROMBIN TIME 25.7 SECONDS (12.5-14.5)
== END ==
LOC: M LABDRWAD 12:41
PROVIDERS: ATTEND Internal Medicine Cardiovascular Disease
DX: Z95.2 Presence of prosthetic heart valve (principal)

== ENCOUNTER → 2025-03-04 | Outpatient (REF) | payer MEDICARE, MEDICAID ==
[2025-03-04 18:05] LABS: HEMATOCRIT 40.7 % (42.0-52.0); HEMOGLOBIN 13.7 g/dl (13.5-17.5); MEAN CORPUSCULAR HEMOGLOBIN 32.3 pg (27.0-33.0); MEAN CORPUSCULAR HGB CONC 33.7 g/dl (32.0-36.5); PLATELET COUNT, AUTOMATED 147 10^3/uL (150-450); RED BLOOD COUNT 4.24 10^6/uL (4.30-6.10); WHITE BLOOD COUNT 4.3 10^3/uL (4.0-10.0)
[2025-03-04 18:14] LABS: ALBUMIN 3.8 G/DL (3.2-5.2); ALKALINE PHOSPHATASE 57 U/L (40-129); ALT/SGPT 15 U/L (7.0-40); AST/SGOT 14 U/L (<34); BILIRUBIN,TOTAL 0.5 MG/DL (0.3-1.2); BLOOD UREA NITROGEN 12 MG/DL (9-23); CALCIUM LEVEL 8.5 MG/DL (8.5-10.1); CARBON DIOXIDE LEVEL 28 MMOL/L (20-31); CHLORIDE LEVEL 103 MMOL/L (98-107); CREATININE FOR GFR 1.01 MG/DL (0.70-1.30); GLOMERULAR FILTRATION RATE > 90.0 (>60); GLUCOSE, FASTING 92 MG/DL (60-100); POTASSIUM SERUM 4.2 MMOL/L (3.5-5.1); SODIUM LEVEL 138 MMOL/L (136-145); TOTAL PROTEIN 6.4 G/DL (5.7-8.2)
== END ==
LOC: M LABDRWAD 17:50
PROVIDERS: ATTEND Family Medicine
DX: E03.9 Hypothyroidism, unspecified (principal); I10 Essential (primary) hypertension; F42.9 Obsessive-compulsive disorder, unspecified; Z95.2 Presence of prosthetic heart valve

== ENCOUNTER → 2025-03-04 | Outpatient (REF) | payer MEDICARE, MEDICAID ==
[2025-03-04 18:09] LABS: INR 2.09; PROTHROMBIN TIME 23.6 SECONDS (12.5-14.5)
== END ==
LOC: M LABDRWAD 17:52
PROVIDERS: ATTEND Internal Medicine Cardiovascular Disease
DX: Z95.2 Presence of prosthetic heart valve (principal)

== ENCOUNTER → 2025-06-10 | Outpatient (REF) | payer MEDICARE, MEDICAID ==
[2025-06-10 13:04] LABS: INR 2.03
== END ==
LOC: M LABDRWAD 12:44
PROVIDERS: ATTEND Internal Medicine Cardiovascular Disease
DX: Z95.2 Presence of prosthetic heart valve (principal)

== ENCOUNTER → 2025-06-25 | Outpatient (REF) | payer MEDICARE, MEDICAID ==
[2025-06-25 18:00] LABS: CALCIUM LEVEL 9.3 MG/DL (8.5-10.1); CARBON DIOXIDE LEVEL 32.0 MMOL/L (20-31); CHLORIDE LEVEL 102.0 MMOL/L (98-107); CREATININE FOR GFR 1.19 MG/DL (0.70-1.30); GLOMERULAR FILTRATION RATE 76.8 (>60); POTASSIUM SERUM 4.4 MMOL/L (3.5-5.1); SODIUM LEVEL 141.0 MMOL/L (136-145)
== END ==
LOC: M LABDRWAD 17:11
PROVIDERS: ATTEND Internal Medicine Cardiovascular Disease
DX: I71.010 Dissection of ascending aorta (principal)

== ENCOUNTER → 2025-06-29 | Outpatient (CLI) | payer MEDICARE, MEDICAID ==
[~2025-06-29] MED LIST changes: +ISOVUE-370 76% 100 ML VIAL As Ordered ONE
== END ==
LOC: M RAD 15:13
PROVIDERS: ATTEND Internal Medicine Cardiovascular Disease
DX: I71.010 Dissection of ascending aorta (principal)
CPT/HCPCS: 71260; Q9967

== ENCOUNTER → 2025-07-20 | Outpatient (REF) | payer MEDICARE, MEDICAID ==
[~2025-07-20] MED LIST changes: -ISOVUE-370 76% 100 ML VIAL As Ordered ONE
[2025-07-20 17:01] LABS: INR 2.8
== END ==
LOC: M LABDRWAD 16:42
PROVIDERS: ATTEND Internal Medicine Cardiovascular Disease
DX: Z95.2 Presence of prosthetic heart valve (principal)

== ENCOUNTER → 2025-09-07 | Outpatient (CLI) | payer MEDICARE, MEDICAID ==
[2025-09-07 13:47] LABS: INR 2.29
== END ==
LOC: M LAB 12:43
PROVIDERS: ATTEND Internal Medicine Cardiovascular Disease
DX: Z95.2 Presence of prosthetic heart valve (principal)